=== PATIENT | male | born 1995 | race African-American/Black ===

== ENCOUNTER 2023-02-08 09:58 | Emergency (ER) | payer SELFPAY ==
[~2023-02-08] VITALS: Ht 190.5 cm; Wt 77.0 kg
[2023-02-08] MEDS ORDERED: IBUPROFEN 600MG TABLET PO ONE (10:30)
[2023-02-08] MEDS ORDERED: IBUP-2029 MT (11:14)
[2023-02-08 11:16] VITALS: BP 160/86
== END 2023-02-08 11:36 | disposition home or self-care (01) ==
LOC: ER 09:58
DX: M54.2 Cervicalgia (principal); R51.9 Headache, unspecified; V49.9XXA Car occupant (driver) (passenger) injured in unspecified traffic accident, initial encounter; Y93.89 Activity, other specified; Y92.89 Other specified places as the place of occurrence of the external cause; Y99.8 Other external cause status
CPT/HCPCS: 99284